=== PATIENT | male | born 2000 | race Hispanic/Latino ===

== ENCOUNTER 2022-07-27 19:09 | Emergency (ER) | payer OTHER ==
[~2022-07-27] VITALS: Ht 170.2 cm; Wt 62.7 kg
[2022-07-27 19:15] VITALS: BP 135/68
[2022-07-27] MEDS ORDERED: D-ME1CAP36 PO (19:26)
[2022-07-27] MEDS ORDERED: IBUPROFEN 600MG TAB PO ONE (20:10)
[2022-07-27] MEDS ORDERED: ACETAMINOPHEN 500 MG TAB PO ONE (20:10)
[2022-07-27 22:52] LABS: GC DNA AMPLIFICATION NEGATIVE (NEGATIVE)
[2022-07-28] MEDS ORDERED: DOXY-443 PO (01:28)
== END 2022-07-27 22:26 | disposition left against medical advice (07) ==
LOC: M ED 19:09
DX: R50.9 Fever, unspecified (principal); J02.9 Acute pharyngitis, unspecified; R10.9 Unspecified abdominal pain; Z53.21 Procedure and treatment not carried out due to patient leaving prior to being seen by health care provider

== ENCOUNTER → 2023-04-25 | Outpatient (CLI) | payer OTHER ==
[~2023-04-25] MED LIST: D-ME1CAP36 PO; DOXY-443 PO; METHACHOLINE KIT INH ONE
== END ==
LOC: M CARPUL 10:09
PROVIDERS: ATTEND Physician Assistant
DX: R06.00 Dyspnea, unspecified (principal)
CPT/HCPCS: 94070; J7674

== ENCOUNTER 2023-11-26 10:20 | Emergency (ER) | payer OTHER ==
[~2023-11-26] VITALS: Ht 167.6 cm; Wt 66.5 kg
[~2023-11-26 10:20] MED LIST changes: -METHACHOLINE KIT INH ONE
[2023-11-26 10:21] VITALS: BP 125/79; TEMP 98.1; O2SAT 98
[2023-11-26] MEDS ORDERED: INDO50CA91 PO (12:17)
== END 2023-11-26 12:23 | disposition home or self-care (01) ==
LOC: M ED 10:20
DX: M25.462 Effusion, left knee (principal); Y92.9 Unspecified place or not applicable; Y93.02 Activity, running; Y99.1 Military activity; Z79.1 Long term (current) use of non-steroidal anti-inflammatories (NSAID)

== ENCOUNTER 2024-12-15 20:08 | Emergency (ER) | payer OTHER ==
[~2024-12-15] VITALS: Ht 170.2 cm; Wt 68.2 kg
[~2024-12-15 20:08] MED LIST changes: +DOXY-441 PO; -DOXY-443 PO; +INDO50CA91 PO
[2024-12-15 20:56] LABS: HEMATOCRIT 45.4 % (42.0-52.0); HEMOGLOBIN 16.1 g/dl (13.5-17.5); MEAN CORPUSCULAR HEMOGLOBIN 29.9 pg (27.0-33.0); MEAN CORPUSCULAR HGB CONC 35.5 g/dl (32.0-36.5); MEAN CORPUSCULAR VOLUME 84.4 fl (80.0-96.0); PLATELET COUNT, AUTOMATED 234 10^3/uL (150-450); RED BLOOD COUNT 5.38 10^6/uL (4.30-6.10); WHITE BLOOD COUNT 8.5 10^3/uL (4.0-10.0)
[2024-12-15 21:09] LABS: CK-MB VALUE MASS < 1.0 NG/ML (<3.6); LIPASE 32 U/L (12-53)
[2024-12-15 21:23] LABS: ATYPICAL LYMPH 2 % (0-5); BASOPHILS 1 % (0-1); EOSINOPHILS 3 % (0-3); LYMPHOCYTES 63 % (16-44); MONOCYTES 3 % (0-5); NEUTROPHILS 28 % (28-66)
[2024-12-15 21:24] LABS: PLATELET ESTIMATE NORMAL (NORMAL)
[2024-12-15 21:27] LABS: ALBUMIN 4.3 G/DL (3.2-5.2); ALKALINE PHOSPHATASE 132 U/L (40-129); ALT/SGPT 36 U/L (7.0-40); AST/SGOT 22 U/L (<34); BILIRUBIN,DIRECT < 0.1 MG/DL (<0.4); BILIRUBIN,TOTAL 0.3 MG/DL (0.3-1.2); BLOOD UREA NITROGEN 9 MG/DL (9-23); CALCIUM LEVEL 9.5 MG/DL (8.5-10.1); CARBON DIOXIDE LEVEL 25 MMOL/L (20-31); CHLORIDE LEVEL 104 MMOL/L (98-107); CREATININE FOR GFR 0.83 MG/DL (0.70-1.30); GLOMERULAR FILTRATION RATE > 90.0 (>60); GLUCOSE, FASTING 93 MG/DL (60-100); SODIUM LEVEL 141 MMOL/L (136-145); TOTAL PROTEIN 7.6 G/DL (5.7-8.2)
[2024-12-15 21:29] LABS: CPK CREATINE PHOSPHOKINASE 128 U/L (46-171); MB/CK RELATIVE INDEX 0.78 (< OR =4)
[2024-12-15] MEDS ORDERED: ISOVUE-370 76% 100ML VIAL As Ordered ONE (22:03)
[2024-12-15 23:15] VITALS: BP 122/69; TEMP 98; O2SAT 98
== END 2024-12-15 23:31 | disposition home or self-care (01) ==
LOC: M ED 20:08
DX: R07.9 Chest pain, unspecified (principal); J98.4 Other disorders of lung; Z79.899 Other long term (current) drug therapy
CPT/HCPCS: 36415; 71045; 71275; 80048; 80076; 82550; 82553; 83690; 84484; 85025; 93005; 99284; Q9967

== ENCOUNTER 2025-05-11 14:54 | Emergency (ER) | payer OTHER ==
[~2025-05-11] VITALS: Ht 165.1 cm; Wt 65.5 kg
[2025-05-11] MEDS: KETOROLAC 60 MG/2 ML VIAL IM ONE (21:00)
[2025-05-11 21:30] VITALS: BP 113/73; TEMP 97
[2025-05-11] MEDS ORDERED: MEDR4PAK PO (22:04)
[2025-05-11] MEDS ORDERED: VALI2TAB PO (22:04)
[2025-05-11] MEDS: traMADol 50 MG TAB (HOME DOSE PACK) PO ONE ×2 (22:30→23:33)
[2025-05-11] MEDS: LIDOCAINE 5% PATCH TD ONE (22:47)
[2025-05-11 22:48] VITALS: O2SAT 97
[2025-05-11] MEDS: PERCOCET 5MG/325MG TAB PO ONE (22:48)
== END 2025-05-11 23:43 | disposition home or self-care (01) ==
LOC: EDBD 14:54 → M ED 14:54
DX: M54.50 Low back pain, unspecified (principal); F39 Unspecified mood [affective] disorder; Z79.899 Other long term (current) drug therapy
CPT/HCPCS: 72110; 72131; 96372; 99284; J1885; J2919